=== PATIENT | male | born 1990 | race Caucasian/White ===

== ENCOUNTER 2022-08-07 13:06 | Emergency (ER) | payer OTHER, SELFPAY ==
--- NOTE | ~2022-08-07 | XR_ITS ---
EXAMINATION: XR CHEST CLINICAL INFORMATION: Chest pain. Left shoulder pain COMPARISON: None available. TECHNIQUE: Frontal view of the chest was obtained. FINDINGS: No significant abnormality is noted involving the heart, lungs, mediastinum, bony thorax or soft tissues. Small piece of jewelry present over the left chest. XR/XR chest 1V IMPRESSION: Unremarkable examination.
--- NOTE | 2022-08-07 13:09 | ECG_ITS ---
Test Reason : L SHOULDER PAIN Blood Pressure : / mmHG Vent. Rate : 079 BPM Atrial Rate : 079 BPM P-R Int : 150 ms QRS Dur : 088 ms QT Int : 354 ms P-R-T Axes : 027 011 028 degrees QTc Int : 405 ms Normal sinus rhythm Normal ECG No previous ECGs available Referred By: Kyra Mahoney Electronically Signed By:Casey Davalos
--- NOTE | 2022-08-07 13:13 | ED.GENADULT ---
HPI - General Adult General Chief complaint: Back Pain/Injury <JOSE JUAN Lopez Last Filed: 08/07/22 13:15> Stated complaint: L shoulder pain/L hand numbness <JOSE JUAN Lopez Last Filed: 08/07/22 13:15> Time Seen by Provider: 08/07/22 15:52 <JOSE JUAN Lopez Last Filed: 08/07/22 13:15> Source: patient <JOSE JUAN Mccarthy Last Filed: 08/07/22 17:22> Mode of arrival: ambulatory <JOSE JUAN Mccarthy Last Filed: 08/07/22 17:22> History of Present Illness HPI narrative: 32-year-old male with no significant past medical history presenting to the ED complaining of left upper back /scapular pain waking him up from sleep around 03:00AM. Reports pain radiates down left upper extremity and to left shoulder, worse with movement and palpation. denies known injury, trauma, fall. Reports mild left upper extremity paresthesias. Denies numbness, weakness, headache, lightheadedness, vision changes, CP/SOB <JOSE JUAN Mccarthy Last Filed: 08/07/22 17:22> Onset (ago): hour(s) <JOSE JUAN Mccarthy Last Filed: 08/07/22 17:22> Related Data Home medications: Previous Rx's Medication Instructions Recorded acetaminophen 500 mg tablet 500 mg PO Q6H PRN fever or pain 08/07/22 (Tylenol Extra Strength) #14 tabs cyclobenzaprine 5 mg tablet 5 mg PO Q8H PRN pain (scale score 08/07/22 7-10) 5 days #14 tabs lidocaine 5 % topical patch 1 patch topical DAILY PRN pain #30 08/07/22 (Lidoderm) ea naproxen 500 mg tablet 500 mg PO BID PRN pain 10 days #20 08/07/22 tabs <JOSE JUAN Lopez Last Filed: 08/07/22 13:15> Allergies/adverse reactions: Allergies Allergy/AdvReac Type Severity Reaction Status Date / Time No Known Allergies Allergy Verified 08/07/22 13:14 <JOSE JUAN Lopez Last Filed: 08/07/22 13:15> Review of Systems Review of Systems: Constitutional: No Fever, No Chills ENT/Mouth: No Ear Pain, No Nasal Congestion, No sore throat, No Rhinorrhea, No Swallowing Difficulty Cardiovascular: No Chest Pain, No SOB Respiratory: No Cough, No Sputum, No Wheezing Gastrointestinal: No Nausea, No Vomiting, No Diarrhea, No Constipation, No Abdominal pain Genitourinary: No Dysuria, No Urinary Frequency, No Hematuria, No Urinary Incontinence/retention, No Flank Pain Musculoskeletal: + joint pain, No Myalgias, No Joint Swelling Skin: No Skin Lesions, No rash Neuro: No Weakness, No Numbness, + Paresthesias <JOSE JUAN Mccarthy - Last Filed: 08/07/22 17:22> Yes all other systems are reviewed and are negative <JOSE JUAN Mccarthy - Last Filed: 08/07/22 17:22> Constitutional: Constitutional: Reports as per HPI <JOSE JUAN Mccarthy - Last Filed: 08/07/22 17:22> Neurologic: Denies Sensory deficit (Neuro) <JOSE JUAN Mccarthy - Last Filed: 08/07/22 17:22> [facility] Past Medical History Attestation statement: The following information was validated with the patient. <JOSE JUAN Mccarthy - Last Filed: 08/07/22 17:22> Social History Social History: Social History Advance Directives: No Advance Directives Information Provided: No <JOSE JUAN Lopez - Last Filed: 08/07/22 13:15> Physical Exam ED Vital Signs: Vital Signs - 24 hr 08/07/22 13:15 Temperature 98 F Pulse Rate 87 Respiratory Rate 17 Blood Pressure 150/98 H Pulse Oximetry 99 Oxygen Delivery Method Room Air BMI result Body Mass Index 27.9 <JOSE JUAN Lopez Last Filed: 08/07/22 13:15> Vital Signs - 24 hr 08/07/22 13:15 Temperature 98 F Pulse Rate 87 Respiratory Rate 17 Blood Pressure 150/98 H Pulse Oximetry 99 Oxygen Delivery Method Room Air BMI result Body Mass Index 27.9 <JOSE JUAN Mccarthy - Last Filed: 08/07/22 17:22> Const General: cooperative, healthy appearing, no acute distress, alert and awake <JOSE JUAN Mccarthy - Last Filed: 08/07/22 17:22> Orientation/consciousness: patient oriented x3 <JOSE JUAN Mccarthy - Last Filed: 08/07/22 17:22> Limitations: no limitations <JOSE JUAN Mccarthy - Last Filed: 08/07/22 17:22> HENMT Head: Yes normal to inspection and Yes atraumatic <Maureen Traylor PA - Last Filed: 08/07/22 17:22> Ears: hearing grossly normal bilaterally <JOSE JUAN Mccarthy - Last Filed: 08/07/22 17:22> General nose exam: Normal external nose present <JOSE JUAN Mccarthy - Last Filed: 08/07/22 17:22> Face and sinus: Yes normal facial exam <JOSE JUAN Mccarthy - Last Filed: 08/07/22 17:22> Eyes General: appearance normal, both eyes and all related structures <JOSE JUAN Mccarthy - Last Filed: 08/07/22 17:22> EOM: EOMs intact bilaterally <JOSE JUAN Mccarthy - Last Filed: 08/07/22 17:22> Neck Other: no midline cervical spinous tenderness. <JOSE JUAN Mccarthy - Last Filed: 08/07/22 17:22> Neck: Yes normal visual inspection and Yes no meningeal signs <JOSE JUAN Mccarthy - Last Filed: 08/07/22 17:22> Chest Chest palpation & inspection: normal inspection of the chest <JOSE JUAN Mccarthy - Last Filed: 08/07/22 17:22> Resp Effort & Inspection: normal respiratory effort and no respiratory distress <JOSE JUAN Mccarthy - Last Filed: 08/07/22 17:22> Auscultation: clear to auscultation bilaterally <JOSE JUAN Mccarhty - Last Filed: 08/07/22 17:22> Cardio Rate: regular rate <JOSE JUAN Mccarthy - Last Filed: 08/07/22 17:22> Heart sounds: S1 normal heart sound present and S2 normal heart sound present <JOSE JUAN Mccarthy - Last Filed: 08/07/22 17:22> GI Inspection: Yes normal to inspection <JOSE JUAN Mccarthy - Last Filed: 08/07/22 17:22> Palpation (GI): Soft to palpation, nontender, no guarding and not rigid <Maureen Traylor PA - Last Filed: 08/07/22 17:22> General: Yes no CVA tenderness <Maureen Traylor PA - Last Filed: 08/07/22 17:22> Back/Spine/Pelvis Other: No midline thoracic/lumbar spinous tenderness/step-off or deformity. + Left scapular palpable muscle spasming and tenderness to palpation, reproducing subjective complaint. Pain also elicited with left arm movement. <Maureen Traylor PA - Last Filed: 08/07/22 17:22> Back: no CVA tenderness <Maureen Traylor PA - Last Filed: 08/07/22 17:22> Skin Rashes: no rashes <Maureen Traylor PA - Last Filed: 08/07/22 17:22> Wounds: no wounds <Maureen Traylor PA - Last Filed: 08/07/22 17:22> Neuro General: patient oriented x3, gait normal, tone normal, moves all extremities, no meningeal signs, no focal motor deficits and CN's II-XI intact bilaterally <Maureen Traylor PA - Last Filed: 08/07/22 17:22> Gait exam (Neuro): Normal gait present <JOSE JUAN Mccarthy - Last Filed: 08/07/22 17:22> Sensory Exam: No Sensory deficit (Neuro) <Maureen Traylor PA - Last Filed: 08/07/22 17:22> Extrem General: Yes normal to inspection <JOSE JUAN Mccarthy - Last Filed: 08/07/22 17:22> Course Course Course Narrative: This is an RME: Additional HPI, ROS, PE not included below will be deferred to primary provider. 32-year-old male presents with numbness and tingling to left shoulder/ hand. Patient tells me at 03:00 he awoke with severe left-sided neck pain and then after started experiencing left shoulder pain, numbness, tingling to left hand. This is never happened to him before. No trauma to the area. Reports mild substernal nonradiating chest pain. Denies shortness of breath, fevers, chills, headache, vision changes, dizziness and weakness physical exam discomfort with palpation of left-sided cervical paraspinous muscles. You neurovascular status intact 2+ radial pulses. No wrist drop. NIH stroke scale 0. Plan labs , EKG, troponin. Likely cervical radiculopathy however <JOSE JUAN Lopez - Last Filed: 08/07/22 13:15> This is an RME: Additional HPI, ROS, PE not included below will be deferred to primary provider. 32-year-old male presents with numbness and tingling to left shoulder/ hand. Patient tells me at 03:00 he awoke with severe left-sided neck pain and then after started experiencing left shoulder pain, numbness, tingling to left hand. This is never happened to him before. No trauma to the area. Reports mild substernal nonradiating chest pain. Denies shortness of breath, fevers, chills, headache, vision changes, dizziness and weakness physical exam discomfort with palpation of left-sided cervical paraspinous muscles. You neurovascular status intact 2+ radial pulses. No wrist drop. NIH stroke scale 0. Plan labs , EKG, troponin. Likely cervical radiculopathy however -1621-- mild leukocytosis of 11.6. Troponin negative. Labs otherwise reassuring. XR chest 1V IMPRESSION: Unremarkable examination. Results discussed with patient including worrisome signs and symptoms and strict return precautions, and when to return to the emergency department. They verbalized understanding and feel safe for discharge at this time. <JOSE JUAN Mccarthy - Last Filed: 08/07/22 17:22> Medications Administered Discontinued Medications Generic Name Dose Route Start Last Admin Trade Name Freq PRN Reason Stop Dose Admin Cyclobenzaprine HCl 10 mg 08/07/22 16:40 08/07/22 16:53 Cyclobenzaprine Hcl 10 Mg Tablet PO 08/07/22 16:41 10 mg ONCE ONE Administration Ketorolac Tromethamine 30 mg 08/07/22 16:40 08/07/22 16:53 Ketorolac Tromethamine 30 Mg/Ml Vial IM 08/07/22 16:41 30 mg ONCE ONE Administration Lidocaine 1 patch 08/07/22 16:40 08/07/22 16:53 Lidocaine 4 % Patch Adh..Patch TRANSDERMA 08/07/22 16:41 1 patch ONCE ONE Administration Protocol <JOSE JUAN Lopez - Last Filed: 08/07/22 13:15> Medications Administered Discontinued Medications Generic Name Dose Route Start Last Admin Trade Name Denisse PRN Reason Stop Dose Admin Cyclobenzaprine HCl 10 mg 08/07/22 16:40 08/07/22 16:53 Cyclobenzaprine Hcl 10 Mg Tablet PO 08/07/22 16:41 10 mg ONCE ONE Administration Ketorolac Tromethamine 30 mg 08/07/22 16:40 08/07/22 16:53 Ketorolac Tromethamine 30 Mg/Ml Vial IM 08/07/22 16:41 30 mg ONCE ONE Administration Lidocaine 1 patch 08/07/22 16:40 08/07/22 16:53 Lidocaine 4 % Patch Adh..Patch TRANSDERMA 08/07/22 16:41 1 patch ONCE ONE Administration Protocol <JOSE JUAN Mccarthy - Last Filed: 08/07/22 17:22> Medical Decision Making Medical Decision Making MDM Narrative: 32-year-old male with no significant past medical history presenting to the ED complaining of left upper back /scapular pain waking him up from sleep around 03:00AM. On exam vital signs stable, NAD, nontoxic appearing, left scapular pain reproduced on exam. Lungs CTA. no midline spinous tenderness. No red flag symptoms. Concern for MSK pain/spasming. Rule out potential pneumonia. symptoms atypical for ACS. Low suspicion for cervical dissection, fracture, dislocation plan: EKG, labs, CXR ordered in triage Please refer to course for remaining clinical decision making, interpretation of labs/imaging results, and discussions with consultants and/or family members. <JOSE JUAN Mccarthy Last Filed: 08/07/22 17:22> Differential Diagnosis Differential Diagnoses: The differential diagnosis associated with the presentation includes <JOSE JUAN Mccarthy Last Filed: 08/07/22 17:22> As above <JOSE JUAN Mccarthy Last Filed: 08/07/22 17:22> Admission/Observation Consideration of admission/observation: Escalation of care including admission/observation considered <JOSE JUAN Mccarthy - Last Filed: 08/07/22 17:22> Lab Data MDM Lab Attestation statement: I reviewed the patient's lab results. <JOSE JUAN Mccarthy - Last Filed: 08/07/22 17:22> Result Diagrams: 08/07/22 13:41 08/07/22 13:41 <JOSE JUAN Lopez - Last Filed: 08/07/22 13:15> Labs: Lab Results 08/07/22 08/07/22 08/07/22 Range/Units 13:41 13:41 13:41 WBC 11.6 H (4.8-10.8) X10*3/uL RBC 4.79 (4.60-5.80) X10*6/uL Hgb 15.6 (14.0-18.0) g/dl Hct 42.9 (42.0-52.0) % MCV 89.6 (80.0-98.0) fL MCH 32.6 (27.0-33.0) pg MCHC 36.4 H (31.0-36.0) g/dl RDW 12.0 (11.0-16.0) % Plt Count 269 (160-400) X10*3/uL MPV 10.2 (9.4-12.4) fL Immature Gran % (Auto) 0.7 H (0.0-0.4) % Neut % (Auto) 79.9 H (45-73) % Lymph % (Auto) 13.5 L (20-40) % [place] % (Auto) 5.3 (2-11) % Eos % (Auto) 0.2 (0-4) % Baso % (Auto) 0.4 (0-2) % Lymph # (Auto) 1.6 (1.2-4.9) X10*3/uL [place] # (Auto) 0.6 (0.1-1.2) X10*3/uL Eos # (Auto) 0.0 (0.0-0.4) X10*3/uL Baso # (Auto) 0.1 (0.0-0.2) X10*3/uL Abs Immat Gran (auto) 0.08 H (0.00-0.03) X10*3/uL Absolute Neuts (auto) 9.2 H (2.0-8.3) x10*3/uL Absolute Nucleated RBC 0.000 (0.0-0.012) X10*3/uL Nucleated RBC % (auto) 0.0 (0.0-0.2) /100WBC Sodium 138 (135-145) mmol/L Potassium 4.3 (3.3-5.1) mmol/L Chloride 105 (96-108) mmol/L Carbon Dioxide 20 L (22-29) mmol/L Anion Gap 17 (12-20) BUN 9 (9-16) mg/dL Creatinine 0.84 (0.5-1.4) mg/dL Estim Creat Clear Calc 138.7 Estimated GFR > 60 Random Glucose 95 (60-115) mg/dL Calcium 9.6 (8.4-10.2) mg/dL Magnesium 2.2 (1.6-2.6) mg/dL Total Bilirubin 0.6 (0.0-1.0) mg/dL AST 30 (5-37) U/L ALT 41 H (0-40) U/L Alkaline Phosphatase 74 (39-117) U/L Troponin I High Sens (<3.5-35.0) ng/L B-Natriuretic Peptide 50 (<100) pg/mL Total Protein 7.1 (6.5-8.0) g/dL Albumin 4.5 (3.5-5.0) g/dL Urine Color Urine Appearance Urine pH (5.0-9.0) Ur Specific [place] (1.005-1.025) Urine Protein (Neg-Trace) mg/dL Urine Glucose (UA) (Negative) mg/dL Urine Ketones (Negative) mg/dL Urine Blood (Negative) Urine Nitrite (Negative) Ur Leukocyte Esterase (Negative) COVID-19 (SERGIO) (Negative) COVID-19 Clin Com 08/07/22 08/07/22 08/07/22 Range/Units 13:41 13:41 13:41 WBC (4.8-10.8) X10*3/uL RBC (4.60-5.80) X10*6/uL Hgb (14.0-18.0) g/dl Hct (42.0-52.0) % MCV (80.0-98.0) fL MCH (27.0-33.0) pg MCHC (31.0-36.0) g/dl RDW (11.0-16.0) % Plt Count (160-400) X10*3/uL MPV (9.4-12.4) fL Immature Gran % (Auto) (0.0-0.4) % Neut % (Auto) (45-73) % Lymph % (Auto) (20-40) % [place] % (Auto) (2-11) % Eos % (Auto) (0-4) % Baso % (Auto) (0-2) % Lymph # (Auto) (1.2-4.9) X10*3/uL [place] # (Auto) (0.1-1.2) X10*3/uL Eos # (Auto) (0.0-0.4) X10*3/uL Baso # (Auto) (0.0-0.2) X10*3/uL Abs Immat Gran (auto) (0.00-0.03) X10*3/uL Absolute Neuts (auto) (2.0-8.3) x10*3/uL Absolute Nucleated RBC (0.0-0.012) X10*3/uL Nucleated RBC % (auto) (0.0-0.2) /100WBC Sodium (135-145) mmol/L Potassium (3.3-5.1) mmol/L Chloride (96-108) mmol/L Carbon Dioxide (22-29) mmol/L Anion Gap (12-20) BUN (9-16) mg/dL Creatinine (0.5-1.4) mg/dL Estim Creat Clear Calc Estimated GFR Random Glucose (60-115) mg/dL Calcium (8.4-10.2) mg/dL Magnesium (1.6-2.6) mg/dL Total Bilirubin (0.0-1.0) mg/dL AST (5-37) U/L ALT (0-40) U/L Alkaline Phosphatase (39-117) U/L Troponin I High Sens < 2.7 (<3.5-35.0) ng/L B-Natriuretic Peptide (<100) pg/mL Total Protein (6.5-8.0) g/dL Albumin (3.5-5.0) g/dL Urine Color Yellow Urine Appearance Clear Urine pH 7.0 (5.0-9.0) Ur Specific [place] 1.010 (1.005-1.025) Urine Protein Negative (Neg-Trace) mg/dL Urine Glucose (UA) Negative (Negative) mg/dL Urine Ketones Negative (Negative) mg/dL Urine Blood Negative (Negative) Urine Nitrite Negative (Negative) Ur Leukocyte Esterase Negative (Negative) COVID-19 (SERGIO) Negative (Negative) COVID-19 Clin Com See Note <JOSE JUAN Lopez - Last Filed: 08/07/22 13:15> Lab Results 08/07/22 08/07/22 08/07/22 Range/Units 13:41 13:41 13:41 WBC 11.6 H (4.8-10.8) X10*3/uL RBC 4.79 (4.60-5.80) X10*6/uL Hgb 15.6 (14.0-18.0) g/dl Hct 42.9 (42.0-52.0) % MCV 89.6 (80.0-98.0) fL MCH 32.6 (27.0-33.0) pg MCHC 36.4 H (31.0-36.0) g/dl RDW 12.0 (11.0-16.0) % Plt Count 269 (160-400) X10*3/uL MPV 10.2 (9.4-12.4) fL Immature Gran % (Auto) 0.7 H (0.0-0.4) % Neut % (Auto) 79.9 H (45-73) % Lymph % (Auto) 13.5 L (20-40) % [place] % (Auto) 5.3 (2-11) % Eos % (Auto) 0.2 (0-4) % Baso % (Auto) 0.4 (0-2) % Lymph # (Auto) 1.6 (1.2-4.9) X10*3/uL [place] # (Auto) 0.6 (0.1-1.2) X10*3/uL Eos # (Auto) 0.0 (0.0-0.4) X10*3/uL Baso # (Auto) 0.1 (0.0-0.2) X10*3/uL Abs Immat Gran (auto) 0.08 H (0.00-0.03) X10*3/uL Absolute Neuts (auto) 9.2 H (2.0-8.3) x10*3/uL Absolute Nucleated RBC 0.000 (0.0-0.012) X10*3/uL Nucleated RBC % (auto) 0.0 (0.0-0.2) /100WBC Sodium 138 (135-145) mmol/L Potassium 4.3 (3.3-5.1) mmol/L Chloride 105 (96-108) mmol/L Carbon Dioxide 20 L (22-29) mmol/L Anion Gap 17 (12-20) BUN 9 (9-16) mg/dL Creatinine 0.84 (0.5-1.4) mg/dL Estim Creat Clear Calc 138.7 Estimated GFR > 60 Random Glucose 95 (60-115) mg/dL Calcium 9.6 (8.4-10.2) mg/dL Magnesium 2.2 (1.6-2.6) mg/dL Total Bilirubin 0.6 (0.0-1.0) mg/dL AST 30 (5-37) U/L ALT 41 H (0-40) U/L Alkaline Phosphatase 74 (39-117) U/L Troponin I High Sens (<3.5-35.0) ng/L B-Natriuretic Peptide 50 (<100) pg/mL Total Protein 7.1 (6.5-8.0) g/dL Albumin 4.5 (3.5-5.0) g/dL Urine Color Urine Appearance Urine pH (5.0-9.0) Ur Specific [place] (1.005-1.025) Urine Protein (Neg-Trace) mg/dL Urine Glucose (UA) (Negative) mg/dL Urine Ketones (Negative) mg/dL Urine Blood (Negative) Urine Nitrite (Negative) Ur Leukocyte Esterase (Negative) COVID-19 (SERGIO) (Negative) COVID-19 Clin Com 08/07/22 08/07/22 08/07/22 Range/Units 13:41 13:41 13:41 WBC (4.8-10.8) X10*3/uL RBC (4.60-5.80) X10*6/uL Hgb (14.0-18.0) g/dl Hct (42.0-52.0) % MCV (80.0-98.0) fL MCH (27.0-33.0) pg MCHC (31.0-36.0) g/dl RDW (11.0-16.0) % Plt Count (160-400) X10*3/uL MPV (9.4-12.4) fL Immature Gran % (Auto) (0.0-0.4) % Neut % (Auto) (45-73) % Lymph % (Auto) (20-40) % [place] % (Auto) (2-11) % Eos % (Auto) (0-4) % Baso % (Auto) (0-2) % Lymph # (Auto) (1.2-4.9) X10*3/uL [place] # (Auto) (0.1-1.2) X10*3/uL Eos # (Auto) (0.0-0.4) X10*3/uL Baso # (Auto) (0.0-0.2) X10*3/uL Abs Immat Gran (auto) (0.00-0.03) X10*3/uL Absolute Neuts (auto) (2.0-8.3) x10*3/uL Absolute Nucleated RBC (0.0-0.012) X10*3/uL Nucleated RBC % (auto) (0.0-0.2) /100WBC Sodium (135-145) mmol/L Potassium (3.3-5.1) mmol/L Chloride (96-108) mmol/L Carbon Dioxide (22-29) mmol/L Anion Gap (12-20) BUN (9-16) mg/dL Creatinine (0.5-1.4) mg/dL Estim Creat Clear Calc Estimated GFR Random Glucose (60-115) mg/dL Calcium (8.4-10.2) mg/dL Magnesium (1.6-2.6) mg/dL Total Bilirubin (0.0-1.0) mg/dL AST (5-37) U/L ALT (0-40) U/L Alkaline Phosphatase (39-117) U/L Troponin I High Sens < 2.7 (<3.5-35.0) ng/L B-Natriuretic Peptide (<100) pg/mL Total Protein (6.5-8.0) g/dL Albumin (3.5-5.0) g/dL Urine Color Yellow Urine Appearance Clear Urine pH 7.0 (5.0-9.0) Ur Specific [place] 1.010 (1.005-1.025) Urine Protein Negative (Neg-Trace) mg/dL Urine Glucose (UA) Negative (Negative) mg/dL Urine Ketones Negative (Negative) mg/dL Urine Blood Negative (Negative) Urine Nitrite Negative (Negative) Ur Leukocyte Esterase Negative (Negative) COVID-19 (SERGIO) Negative (Negative) COVID-19 Clin Com See Note <JOSE JUAN Mccarthy - Last Filed: 08/07/22 17:22> Independent Interpretation I performed an independent interpretation of an: EKG ( My interpretation normal sinus rhythm at a rate of 79. QRS 88. QTC 405. No STEMI.) <JOSE JUAN Mccarthy - Last Filed: 08/07/22 17:22> Radiology Impression Discussion of test interpretation with radiology: I have reviewed the radiologist's reading. <JOSE JUAN Mccarthy - Last Filed: 08/07/22 17:22> External Record Review External record reviewed: Inpatient record, Office record, Outpatient record, Prior outpatient labs, Prior outpatient radiology, Primary care record and Outside ED record <JOSE JUAN Mccarthy - Last Filed: 08/07/22 17:22> Discharge Plan Discharge Clinical Impression: Pain of left scapula <JOSE JUAN Lopez - Last Filed: 08/07/22 13:15> Patient Disposition: Home, Self-Care <JOSE JUAN Lopez - Last Filed: 08/07/22 13:15> Instructions: Arthralgia (ED) <JOSE JUAN Lopez - Last Filed: 08/07/22 13:15> Additional Instructions: your blood work and imaging studies were reassuring. Your pain is likely musculoskeletal Flexeril is a muscle relaxer, take at night as it makes you drowsy, do not drive, drink alcohol, or operate machinery while taking it Naproxen as an anti-inflammatory / pain medication, take with food Lidoderm patches are numbing patches, apply to painful area In addition take Tylenol at home If symptoms persist or worsen, pain becomes unbearable, you developed urinary retention or incontinence, or weakness return to the ED <JOSE JUAN Lopez - Last Filed: 08/07/22 13:15> Prescriptions: New acetaminophen [Tylenol Extra Strength] 500 mg tablet 500 mg PO Q6H PRN (Reason: fever or pain) Qty: 14 0RF lidocaine [Lidoderm] 5 % adhesive patch,medicated 1 patch topical DAILY MDD remove after 12 hours PRN (Reason: pain) Qty: 30 0RF Rx Instructions: leave on most painful area for up to 12 hrs naproxen 500 mg tablet 500 mg PO BID PRN (Reason: pain) 10 Days Qty: 20 0RF cyclobenzaprine 5 mg tablet 5 mg PO Q8H PRN (Reason: pain (scale score 7-10)) 5 Days Qty: 14 0RF <JOSE JUAN Lopez - Last Filed: 08/07/22 13:15> Referrals: Physician,None [Primary Care Provider] - <JOSE JUAN Lopez - Last Filed: 08/07/22 13:15> Stand Alone Forms: Work/School Release <JOSE JUAN Lopez - Last Filed: 08/07/22 13:15>
[2022-08-07 13:15] VITALS: BP 150/98; PULSE 87; RESP 17; TEMP 36.6; O2SAT 99; BMI 27.9
[2022-08-07 13:46] LABS: MANUAL DIFF FLAG NO
[2022-08-07 13:51] LABS: Basophils Absolute Auto 0.1 X10*3/uL (0.0-0.2); Basophils Percent Auto 0.4 % (0-2); Eosinophils Percent Auto 0.2 % (0-4); Hematocrit 42.9 % (42.0-52.0); Hemoglobin 15.6 g/dl (14.0-18.0); Imm Gran Abs Auto 0.08 X10*3/uL (0.00-0.03); Imm Gran Pct Auto 0.7 % (0.0-0.4); Lymphocytes Absolute Auto 1.6 X10*3/uL (1.2-4.9); Lymphocytes Percent Auto 13.5 % (20-40); Mean Corpuscular HGB Conc 36.4 g/dl (31.0-36.0); Mean Corpuscular Hemoglobin 32.6 pg (27.0-33.0); Mean Corpuscular Volume 89.6 fL (80.0-98.0); Mean Platelet Volume 10.2 fL (9.4-12.4); Monocytes Absolute Auto 0.6 X10*3/uL (0.1-1.2); Monocytes Percent Auto 5.3 % (2-11); Neutrophils Absolute Auto 9.2 x10*3/uL (2.0-8.3); Neutrophils Percent Auto 79.9 % (45-73); Platelet Count 269 X10*3/uL (160-400); Red Blood Count 4.79 X10*6/uL (4.60-5.80); White Blood Count 11.6 X10*3/uL (4.8-10.8)
[2022-08-07 13:59] LABS: Appearance Urine Clear; Color Urine Yellow; Glucose Urine UA Negative (Negative); Leukocyte Esterase Urine Negative (Negative); Nitrite Urine Negative (Negative); Urine Blood Negative (Negative); Urine Ketones Negative (Negative); Urine Protein Negative (Neg-Trace)
[2022-08-07 14:09] LABS: COVID-19 Test Negative (Negative); IDNOW Serial# 55D5AD1C
[2022-08-07 14:10] LABS: Alanine Aminotransferase 41 U/L (0-40); Albumin Level 4.5 g/dL (3.5-5.0); Alkaline Phosphatase 74 U/L (39-117); Anion Gap 17 (12-20); Aspartate Amino Transferase 30 U/L (5-37); Bilirubin Total 0.6 mg/dL (0.0-1.0); Blood Urea Nitrogen 9 mg/dL (9-16); Calcium 9.6 mg/dL (8.4-10.2); Carbon Dioxide 20 mmol/L (22-29); Chloride 105 mmol/L (96-108); Creatinine Clr Calc Pharmacy 138.7; Estimated Glomerular Filt Rate > 60; Glucose Random 95 mg/dL (60-115); Magnesium 2.2 mg/dL (1.6-2.6); Potassium 4.3 mmol/L (3.3-5.1); Sodium 138 mmol/L (135-145); Total Protein 7.1 g/dL (6.5-8.0)
[2022-08-07 14:16] LABS: B Type Natriuretic Peptide 50 pg/mL (<100)
[2022-08-07 14:19] LABS: Troponin-I High Sensitivity < 2.7 ng/L (<3.5-35.0)
[2022-08-07] MEDS: Ketorolac Tromethamine 30 MG/ML VIAL IM (16:53)
[2022-08-07] MEDS: Cyclobenzaprine HCl 10 MG TABLET PO (16:53)
[2022-08-07] MEDS: Lidocaine 4 % Patch ADH..PATCH 1 PATCH TRANSDERMA (16:53)
== END 2022-08-07 17:54 | disposition home or self-care (01) ==
PROVIDERS: Physician Assistant; Emergency Provider Emergency Medicine
DX: M25.512 Pain in left shoulder (principal); Z20.822 Contact with and (suspected) exposure to COVID-19; R20.2 Paresthesia of skin
CPT/HCPCS: 36415; 71045; 80053; 81003; 83735; 83880; 84484; 85025; 87635; 93005; 96372; 99284; J1885

== ENCOUNTER 2022-08-20 10:29 | Emergency (ER) | payer OTHER, SELFPAY ==
--- NOTE | ~2022-08-20 | XR_ITS ---
EXAMINATION: XR SHOULDER, LEFT CLINICAL INFORMATION: Pain COMPARISON: None available. TECHNIQUE: 3 views of the left shoulder. FINDINGS: The bones and soft tissues are normal. No fracture. Glenohumeral and acromioclavicular alignment is anatomic with normal joint space. No abnormal soft tissue calcifications. XR/XR shoulder LT min 2V IMPRESSION: Normal left shoulder.
[2022-08-20 10:55] VITALS: BP 148/91; PULSE 110; RESP 18; O2SAT 99; BMI 28.7
--- NOTE | 2022-08-20 13:08 | ECG_ITS ---
Test Reason : l arm pain Blood Pressure : / mmHG Vent. Rate : 076 BPM Atrial Rate : 076 BPM P-R Int : 148 ms QRS Dur : 092 ms QT Int : 376 ms P-R-T Axes : 028 011 029 degrees QTc Int : 423 ms Normal sinus rhythm Normal ECG When compared with ECG of 07-AUG-2022 13:35, No significant change was found Referred By: Maxime Salas Electronically Signed By:JOSE LENZ
--- NOTE | 2022-08-20 13:25 | ED_ITS ---
HPI - General Adult General Chief complaint: Extremity Problem Stated complaint: Pinched nerve/L shoulder pain/L arm pain Time Seen by Provider: 08/20/22 12:15 Source: patient Mode of arrival: ambulatory Limitations: no limitations History of Present Illness HPI narrative: 32-year-old male healthy presents ED for left shoulder pain/left arm numbness for 14 days that is worse on movement. Patient denies any trauma to left upper extremity/neck pain/ left upper extremity swelling, or paralysis. Patient denies chest pain today but had slight chest pain 14 days ago that resolved. Patient had normal cardiac workup and chest xray in prior ED visit. Patient states he has no primary care provider. Patient states no shoulder pain relief with naproxen and mulsce relaxers Related Data Previous Rx's Medication Instructions Recorded acetaminophen 500 mg tablet 500 mg PO Q6H PRN fever or pain 08/07/22 (Tylenol Extra Strength) #14 tabs cyclobenzaprine 5 mg tablet 5 mg PO Q8H PRN pain (scale score 08/07/22 7-10) 5 days #14 tabs lidocaine 5 % topical patch 1 patch topical DAILY PRN pain #30 08/07/22 (Lidoderm) ea naproxen 500 mg tablet 500 mg PO BID PRN pain 10 days #20 08/07/22 tabs ketorolac 10 mg tablet 10 mg PO QID PRN pain 5 days #20 08/20/22 tabs prednisone 20 mg tablet 60 mg PO DAILY 5 days #15 tabs 08/20/22 Allergies Allergy/AdvReac Type Severity Reaction Status Date / Time No Known Allergies Allergy Verified 08/07/22 13:14 Review of Systems Review of Systems: LEft shoulder/left arm pain. No chest pain today Yes all other systems are reviewed and are negative [facility] Social History Social History Advance Directives: No Advance Directives Information Provided: Yes Physical Exam ED Vital Signs: Vital Signs - 24 hr 08/20/22 10:55 08/20/22 15:13 Pulse Rate 110 H 80 Respiratory Rate 18 16 Blood Pressure 148/91 H 144/86 H Pulse Oximetry 99 98 Oxygen Delivery Method Room Air Room Air BMI result Body Mass Index 28.7 Const General: cooperative, healthy appearing, comfortable, no acute distress, well developed, alert, awake and Physically active Orientation/consciousness: oriented to person, oriented to place, oriented to time and patient oriented x3 [facility] Head: Yes normal to inspection, Yes No palpable skull fracture present, Yes normocephalic, Yes atraumatic and No abrasion Eyes General: appearance normal, both eyes and all related structures Neck Neck: Yes normal visual inspection, Yes full ROM, Yes no lymphadenopathy, Yes no meningeal signs, Yes trachea midline, Yes supple, No anterior neck swelling and No tender Chest Chest palpation & inspection: normal inspection of the chest and normal palpation of entire chest wall Resp Effort & Inspection: normal respiratory effort and able to speak in complete sentences Cardio Jugular venous distension: no JVD Heart sounds: S1 normal heart sound present and S2 normal heart sound present GI Inspection: Yes normal to inspection and No abdominal wall ecchymosis Palpation (GI): Soft to palpation, not firm, nontender, no guarding, not rigid and hepatosplenomegaly present General: No CVA tenderness and Yes no CVA tenderness Back/Spine/Pelvis Back: no CVA tenderness, No CVA tenderness and No back tenderness Skin General skin exam: no rashes or lesions noted and elasticity normal Neuro General: oriented to person, oriented to place, oriented to time, patient or iented x3, gait normal, tone normal, moves all extremities, Normal light touch and pain sensation, no meningeal signs, no focal motor deficits and CN's II-XI intact bilaterally Extrem Other: Left upper extremity: Negative for any swelling, tenderness, ecchymosis, or deformity. Motor/nose/vascular exam intact. Positive for shoulder pain on range of motion of left upper extremity. General: Yes normal to inspection and Yes full ROM Psych Appearance: grossly normal, well kempt and not disheveled Course Course Course Narrative: Unlikely cardiac event but due to patient stating left shoulder arm pain with numbness/tingling will do EKG and 1 troponin. Shoulder x-ray will be ordered. Last ED visit patient had normal chest x-ray and denies chest pain today. Reevaluation(s) Reevaluation #1: Shoulder x-ray came back negative for any fracture or dislocations. EKG negative STEMI. Troponin negative. Patient informed necessity for follow-up with primary care provider for physical therapy and MRI to check for shoulder muscle tear or nerve impingement. Patient does not have primary care given information to call your primary care office and also orthopedic. Patient will be discharged with Toradol and prednisone. Time: 15:08 Medications Administered Discontinued Medications Generic Name Dose Route Start Last Admin Trade Name Denisse PRN Reason Stop Dose Admin Ketorolac Tromethamine 30 mg 08/20/22 13:29 08/20/22 13:39 Ketorolac Tromethamine 30 Mg/Ml Vial IM 08/20/22 13:30 30 mg ONCE ONE Administration Prednisone 60 mg 08/20/22 13:25 08/20/22 13:40 Prednisone 20 Mg Tablet PO 08/20/22 13:26 60 mg ONCE ONE Administration Medical Decision Making Medical Decision Making [facility] Narrative: 32 yold male presents to the ED for left shoulder pain described as pinched nerve for 14 ydas. Shoulder x-ray normal cardiac workup negative. Patient informed follow-up with primary care or Orthopedics for MRI physical therapy. Patient will be discharged with Toradol and prednisone. Differential Diagnosis Differential Diagnoses: The differential diagnosis associated with the presentation includes (Shoulder dislocation, shoulder fracture, MO, frozen shoulder) Admission/Observation Consideration of admission/observation: Escalation of care including adm ission/observation considered Lab Data [facility] Lab Attestation statement: I reviewed the patient's lab results. 08/20/22 14:23 08/20/22 14:23 Labs: Lab Results 08/20/22 08/20/22 08/20/22 Range/Units 14:23 14:23 14:23 WBC 9.0 (4.8-10.8) X10*3/uL RBC 4.79 (4.60-5.80) X10*6/uL Hgb 15.6 (14.0-18.0) g/dl Hct 44.0 (42.0-52.0) % MCV 91.9 (80.0-98.0) fL MCH 32.6 (27.0-33.0) pg MCHC 35.5 (31.0-36.0) g/dl RDW 12.2 (11.0-16.0) % Plt Count 266 (160-400) X10*3/uL MPV 10.3 (9.4-12.4) fL Immature Gran % (Auto) 0.7 H (0.0-0.4) % Neut % (Auto) 65.5 (45-73) % Lymph % (Auto) 22.8 (20-40) % [place] % (Auto) 6.9 (2-11) % Eos % (Auto) 3.4 (0-4) % Baso % (Auto) 0.7 (0-2) % Lymph # (Auto) 2.1 (1.2-4.9) X10*3/uL [place] # (Auto) 0.6 (0.1-1.2) X10*3/uL Eos # (Auto) 0.3 (0.0-0.4) X10*3/uL Baso # (Auto) 0.1 (0.0-0.2) X10*3/uL Abs Immat Gran (auto) 0.06 H (0.00-0.03) X10*3/uL Absolute Neuts (auto) 5.9 (2.0-8.3) x10*3/uL Absolute Nucleated RBC 0.000 (0.0-0.012) X10*3/uL Nucleated RBC % (auto) 0.0 (0.0-0.2) /100WBC PT 11.1 (10.0-13.1) SEC INR 1.0 (0.9-1.1) APTT 29.7 (26.0-36.4) SEC Sodium 137 (135-145) mmol/L Potassium 4.9 (3.3-5.1) mmol/L Chloride 105 (96-108) mmol/L Carbon Dioxide 23 (22-29) mmol/L Anion Gap 14 (12-20) BUN 13 (9-16) mg/dL Creatinine 0.91 (0.5-1.4) mg/dL Estim Creat Clear Calc 129.5 Estimated GFR > 60 Random Glucose 95 (60-115) mg/dL Calcium 9.3 (8.4-10.2) mg/dL Total Bilirubin 0.9 (0.0-1.0) mg/dL AST 35 (5-37) U/L ALT 32 (0-40) U/L Alkaline Phosphatase 72 (39-117) U/L Troponin I High Sens (<3.5-35.0) ng/L Total Protein 7.1 (6.5-8.0) g/dL Albumin 4.5 (3.5-5.0) g/dL 08/20/22 Range/Units 14:23 WBC (4.8-10.8) X10*3/uL RBC (4.60-5.80) X10*6/uL Hgb (14.0-18.0) g/dl Hct (42.0-52.0) % MCV (80.0-98.0) fL MCH (27.0-33.0) pg MCHC (31.0-36.0) g/dl RDW (11.0-16.0) % Plt Count (160-400) X10*3/uL MPV (9.4-12.4) fL Immature Gran % (Auto) (0.0-0.4) % Neut % (Auto) (45-73) % Lymph % (Auto) (20-40) % [place] % (Auto) (2-11) % Eos % (Auto) (0-4) % Baso % (Auto) (0-2) % Lymph # (Auto) (1.2-4.9) X10*3/uL [place] # (Auto) (0.1-1.2) X10*3/uL Eos # (Auto) (0.0-0.4) X10*3/uL Baso # (Auto) (0.0-0.2) X10*3/uL Abs Immat Gran (auto) (0.00-0.03) X10*3/uL Absolute Neuts (auto) (2.0-8.3) x10*3/uL Absolute Nucleated RBC (0.0-0.012) X10*3/uL Nucleated RBC % (auto) (0.0-0.2) /100WBC PT (10.0-13.1) SEC INR (0.9-1.1) APTT (26.0-36.4) SEC Sodium (135-145) mmol/L Potassium (3.3-5.1) mmol/L Chloride (96-108) mmol/L Carbon Dioxide (22-29) mmol/L Anion Gap (12-20) BUN (9-16) mg/dL Creatinine (0.5-1.4) mg/dL Estim Creat Clear Calc Estimated GFR Random Glucose (60-115) mg/dL Calcium (8.4-10.2) mg/dL Total Bilirubin (0.0-1.0) mg/dL AST (5-37) U/L ALT (0-40) U/L Alkaline Phosphatase (39-117) U/L Troponin I High Sens < 2.7 (<3.5-35.0) ng/L Total Protein (6.5-8.0) g/dL Albumin (3.5-5.0) g/dL Independent Interpretation I performed an independent interpretation of an: EKG (Normal sinus rhythm. Ventricular rate 76. Pr interval 148. QRS 92. QTC 423. Negative STEMI) Radiology Impression Discussion of test interpretation with radiology: I have reviewed the radiologist's reading. Prescription Management I considered prescription management with: Pain Medication Discharge Plan Discharge Clinical Impression: Left shoulder pain Patient Disposition: Home, Self-Care Instructions: Shoulder Pain (ED) Additional Instructions: Please follow-up with primary care provider and orthopedic for physical therapy and MRI for re-evaluation of possible shoulder muscle tear versus nerve impingement. Return to the ED immediately for swelling of left upper extremity, chest pain, shortness of breath, redness, blue/discoloration, fever, chills, or any other concerning symptoms. Do not take any other NSaIDS ( naproxen, motrin, alleve, ibuprofen, baclofen), while taking toradol. Prescriptions: New prednisone 20 mg tablet 60 mg PO DAILY 5 Days Qty: 15 0RF ketorolac 10 mg tablet 10 mg PO QID PRN (Reason: pain) 5 Days Qty: 20 0RF Rx Instructions: Do not take with other NSAIDS. REcieved toradol 30mg in the ED No Action acetaminophen [Tylenol Extra Strength] 500 mg tablet 500 mg PO Q6H PRN (Reason: fever or pain) Qty: 14 0RF lidocaine [Lidoderm] 5 % adhesive patch,medicated 1 patch topical DAILY MDD remove after 12 hours PRN (Reason: pain) Qty: 30 0RF Rx Instructions: leave on most painful area for up to 12 hrs naproxen 500 mg tablet 500 mg PO BID PRN (Reason: pain) 10 Days Qty: 20 0RF cyclobenzaprine 5 mg tablet 5 mg PO Q8H PRN (Reason: pain (scale score 7-10)) 5 Days Qty: 14 0RF Referrals: [facility] [place] [facility] [Provider Group] (LEft shoulder pain. muscle tear vs nerve impingment.) [facility] [place] [facility] [Provider Group] (LEft shoulder pain. muscle tear vs nerve impingement) Stand Alone Forms: Work/School Release Interventions: ED Discharge Assessment Last Done: 08/20/22 15:27 Discharge Date/Time: 08/20/22 15:29 Print Language: Chilean
[2022-08-20] MEDS: Ketorolac Tromethamine 30 MG/ML VIAL IM (13:39)
[2022-08-20] MEDS: predniSONE 20 MG TABLET 60 MG PO (13:40)
[2022-08-20 14:29] LABS: MANUAL DIFF FLAG NO
[2022-08-20 14:31] LABS: Basophils Absolute Auto 0.1 X10*3/uL (0.0-0.2); Basophils Percent Auto 0.7 % (0-2); Eosinophils Absolute Auto 0.3 X10*3/uL (0.0-0.4); Eosinophils Percent Auto 3.4 % (0-4); Hemoglobin 15.6 g/dl (14.0-18.0); Imm Gran Abs Auto 0.06 X10*3/uL (0.00-0.03); Imm Gran Pct Auto 0.7 % (0.0-0.4); Lymphocytes Absolute Auto 2.1 X10*3/uL (1.2-4.9); Lymphocytes Percent Auto 22.8 % (20-40); Mean Corpuscular HGB Conc 35.5 g/dl (31.0-36.0); Mean Corpuscular Hemoglobin 32.6 pg (27.0-33.0); Mean Corpuscular Volume 91.9 fL (80.0-98.0); Mean Platelet Volume 10.3 fL (9.4-12.4); Monocytes Absolute Auto 0.6 X10*3/uL (0.1-1.2); Monocytes Percent Auto 6.9 % (2-11); Neutrophils Absolute Auto 5.9 x10*3/uL (2.0-8.3); Neutrophils Percent Auto 65.5 % (45-73); Platelet Count 266 X10*3/uL (160-400); Red Blood Count 4.79 X10*6/uL (4.60-5.80); Red Cell Distribution Width 12.2 % (11.0-16.0)
[2022-08-20 14:38] LABS: Prothrombin Time 11.1 SEC (10.0-13.1)
[2022-08-20 14:41] LABS: Partial Thromboplastin Time 29.7 SEC (26.0-36.4)
[2022-08-20 14:46] LABS: Alanine Aminotransferase 32 U/L (0-40); Albumin Level 4.5 g/dL (3.5-5.0); Alkaline Phosphatase 72 U/L (39-117); Anion Gap 14 (12-20); Aspartate Amino Transferase 35 U/L (5-37); Bilirubin Total 0.9 mg/dL (0.0-1.0); Blood Urea Nitrogen 13 mg/dL (9-16); Calcium 9.3 mg/dL (8.4-10.2); Carbon Dioxide 23 mmol/L (22-29); Chloride 105 mmol/L (96-108); Creatinine Clr Calc Pharmacy 129.5; Estimated Glomerular Filt Rate > 60; Glucose Random 95 mg/dL (60-115); Potassium 4.9 mmol/L (3.3-5.1); Sodium 137 mmol/L (135-145); Total Protein 7.1 g/dL (6.5-8.0)
[2022-08-20 14:54] LABS: Troponin-I High Sensitivity < 2.7 ng/L (<3.5-35.0)
[2022-08-20 15:13] VITALS: BP 144/86; PULSE 80; RESP 16; O2SAT 98
== END 2022-08-20 15:29 | disposition home or self-care (01) ==
PROVIDERS: Physician Assistant; Emergency Provider Emergency Medicine
DX: M25.512 Pain in left shoulder (principal); M79.602 Pain in left arm; R20.2 Paresthesia of skin; Z79.899 Other long term (current) drug therapy
CPT/HCPCS: 36415; 73030; 80053; 84484; 85025; 85610; 85730; 93005; 96372; 99284; J1885

== ENCOUNTER 2023-07-05 09:46 | Outpatient (AMB) | payer OTHER, SELFPAY ==
[2023-07-05 09:55] VITALS: BP 126/86; PULSE 98; O2SAT 96; BMI 30.4
--- NOTE | 2023-07-05 09:55 | A.OFFPC_ITS ---
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 Pt states that he has been having neck pain for a while now and now he started having tingling in his L leg and foot. Allergies melani Allergy (Verified 07/05/23 10:07) irritaes throat nickel Allergy (Verified 07/05/23 10:07) Unknown Medication List - Last Reconciled 07/05/23 by DARRIUS Lynn acetaminophen (Tylenol Extra Strength) 500 mg PO Q6H PRN Tobacco use date assessed: 07/05/23 Dental Screening Dental Screen Date: 07/05/23 Did you have a dental visit in the last 12 months?: Yes Did you have a dental problem in the last 6 months where you did not have access to dental care?: No Was dental information given to patient?: [facility] Family History Father Melanoma Mother ADHD Social History Housing: Apartment Patient Tobacco Use Status: Never used Tobacco Current occupational status: employed Cognitive needs: No Hearing needs: No Vision needs: Yes Questionnaire PHQ-9 Over the last 2 weeks, how often have you been bothered by any of the following problems? 1. Little interest or pleasure in doing things: several days 2. Feeling down, depressed, or hopeless: more than half the days 3. Trouble falling or staying asleep, or sleeping too much: more than half the days 4. Feeling tired or having little energy: several days 5. Poor appetite or overeating: several days 6. Feeling bad about yourself - or that you are a failure or have let yourself or your family down: several days 7. Trouble concentrating on things, such as reading the newspaper or watching television: several days 8. Moving or speaking so slowly that other people could have noticed. Or the opposite - being so fidgety or restless that you have been moving around a lot more than usual: several days 9. Thoughts that you would be better off or of hurting yourself in some way: several days Total score: 11 Depression Screening Interpretation: Negative Depression Screening Done: Yes 06678 - PHQ-9 Billing: Yes Source: Developed by Drs. Wayne Melissa, Edna Israel, Mt Flores and colleagues, with an educational barron from [employer]. AUDIT C Alcohol Use Questionnaire (AUDIT-C) 1. How often do you have a drink containing alcohol?: 4 or more times a week 2. How many drinks containing alcohol do you have on a typical day when you are drinking?: 1 or 2 3. How often do you have six or more drinks on one occasion?: Never Total Score: 4 YONNY-7 AMB Questionnaire YONNY-7 Feeling nervous, anxious, or on edge: 2 = More than half the days Not being able to stop or control worryin = More than half the days Worrying too much about different things: 2 = More than half the days Trouble relaxin = Several days Being so restless that it is hard to sit still: 2 = More than half the days Becoming easily annoyed or irritable: 2 = More than half the days Feeling afraid as if something awful might happen: 2 = More than half the days Total YONNY-7 score (0-4 normal; 5-9 mild; 10-14 moderate; 15-21 severe): 13 Source: Developed by Drs. Wayne Melissa, Edna Israel, Mt Flores and colleagues, with an educational barron from [employer]. YONNY-7 Assessment Billing YONNY-7 Assessment Tool: YONNY-7 Assessment 32873 Review of Systems Const Details: Constitutional : No Weight loss, No Fever, No Chills, No Fatigue, No Malaise ENT/Mouth : No sore throat, No Rhinorrhea Eyes: No Eye Pain, No Swelling, No Redness Cardiovascular : No Chest Pain, No SOB, No Dyspnea on Exertion, No Orthopnea, No Edema, No Palpitations Respiratory : No Cough, No Sputum, No Wheezing Gastrointestinal : No Nausea, No Vomiting, No Diarrhea, No Constipation, No abdominal Pain, No Hematochezia, No Melena, Admits GERD. Genitourinary : No Dysuria, No Urinary Frequency, No Hematuria, Musculoskeletal : Admits upper back, cervical pain. Admits intermittent muscle cramps of left hand and leg. Skin : No Skin Lesions, No rash Neuro : No Weakness, No Numbness, No Dizziness, No Headache. Admits tingling of left hand, thumb and first two fingers, and tingling down left foot. Psych : Admits some Anxiety/Panic, No Depression. Dnies SI/HI. Heme/Lymph: No Bruising, No Bleeding,No Lymphadenopathy Endocrine : No Polyuria, No Polydipsia All other systems reviewed and are negative Physical exam (Primary Care) Vital Signs: Last Vital Signs Pulse 98 07/05/23 09:55 BP 126/86 07/05/23 09:55 Pulse Ox 96 07/05/23 09:55 Oxygen Delivery Method Room Air 07/05/23 09:55 Care Plan Goal for BP management: Vital signs reviewed stable. BMI result Body Mass Index 30.4 Tobacco/Smoking Status: Tobacco use Status Tobacco use date assessed 07/05/23 07/05/23 10:04 Patient Tobacco Use Status Never used Tobacco 07/05/23 10:04 e-Cigarette/Vaping Use 07/05/23 10:04 Depression Screening Interpretation: Negative Const Other: Appearance: Alert.? Oriented X3.? No acute distress.? Head: Normocephalic, atraumatic. Neck: Normal inspection.? Neck supple.? CVS: Normal heart rate and rhythm.? Pulses normal.? Respiratory: No respiratory distress.? Breath sounds normal.? Skin: Skin warm and dry.? Normal skin color.? Normal skin turgor.? Extremities: No lower extremity edema.? No calf ttp. 5/5 strength to bilateral upper and lower extremities Back: No midline tenderness, no C-spine tenderness, full range of motion, no CVA tenderness bilaterally. Left sided Paraspinal muscle tenderness. Neuro: Oriented X 3.? No motor deficit. + straight leg test left leg with rediculopathy. CN 2-12 intact Assessment and Plan Assessment & Plan (1) ADHD: Comment: Patient has a history of ADHD, states he was medicated during childhood. Has no t been on ADH medication for several years, but states he is experiencing racing thoughts at times. Patient met with community navigator to assist with ADHD testing in to establish psychiatric provider for medication intervention if needed. Code(s): F90.9 - Attention-deficit hyperactivity disorder, unspecified type Qualifiers: Attention deficit-hyperactivity disorder type: unspecified Qualified Code(s): F90.9 - Attention-deficit hyperactivity disorder, unspecified type (2) Neck arthralgia: Comment: Patient has ER visits where he was treated for neck arthralgia. States that he continues to have problem of intermittent left-sided pain, the cervical paraspinal region. Patient states he does get occasional tingling and numbness down his left hand and into his thumb and 1st 2 fingers. Will give patient meloxicam, will give cyclobenzaprine, will obtain x-ray of the cervical spine. Will also refer for nerve conduction test. Code(s): M54.2 - Cervicalgia Plan: Will intervene based on x-ray results. (3) Lumbar back pain with radiculopathy affecting lower extremity: Comment: Patient has positive straight leg test with radiculopathy on physical exam. Will order x-ray of the lumbar spine. Code(s): M54.16 - Radiculopathy, lumbar region Plan: Will follow up in intervene based on x-ray results (4) Muscle cramps: Comment: Patient states he has intermittent muscle cramps. Will draw labs. Patient has been instructed to take 400 mg magnesium daily. Code(s): R25.2 - Cramp and spasm (5) Numbness and tingling in left hand: Comment: Will order nerve conduction test. Code(s): R20.0 - Anesthesia of skin; R20.2 - Paresthesia of skin (6) GERD (gastroesophageal reflux disease): Comment: Patient has been taking omeprazole with limited effect. Will prescribe pantoprazole sodium. Patient has also been taking ibuprofen due to neck pain, will switch to meloxicam. Neck patient has been instructed to take this medication with food in his stomach in plenty of water. Code(s): K21.9 - Gastro-esophageal reflux disease without esophagitis Qualifiers: Esophagitis presence: without esophagitis Qualified Code(s): K21.9 - Gastro-esophageal reflux disease without esophagitis Plan: Take your medications as prescribed. If you were prescribed antibiotics today, it is important that you take your medication to their entirety, do not skip any doses, do not finish them early. Follow-up with your primary care provider this week. Return to the emergency department with new or worsening symptoms. Such as fevers, chills, chest pain, shortness of breath, nausea, vomiting, dizziness, headache, vision changes, lethargy In case of emergency call 911 Plan Patient to follow-up with physical exam in 3 months. Orders: Orders XR lumbar spine 2-3V Today M54.16 - Radiculopathy, lumbar region Magnesium Today R25.2 - Cramp and spasm Vitamin D 25-OH (D2 and D3) Today Z13.21 - Encounter for screening for nutritional disorder UA CC w/rflx Micro + Cult Today Z13.89 - Encounter for screening for other disorder Complete Blood Count Auto Diff Today Z13.0 - Encounter for screening for diseases of the blood and blood-forming organs and certain disorders involving the immune mechanism Comprehensive Met. Panel Today Z91.89 - Other specified personal risk factors, not elsewhere classified XR cervical spine 2V Today M54.2 - Cervicalgia Vitamin B6 Today Z13.21 - Encounter for screening for nutritional disorder Vitamin B12 Today Z13.21 - Encounter for screening for nutritional disorder TSH reflex Free T4 Today Z13.29 - Encounter for screening for other suspected endocrine disorder Lipid Panel Today Z13.220 - Encounter for screening for lipoid disorders NE nerve conduction velocity Today R20.0 - Anesthesia of skin, R20.2 - Paresthesia of skin Medications: New cyclobenzaprine 10 mg PO BEDTIME PRN 14 tabs 0RF muscle spasm meloxicam Do not combine with other NSAIDS. Take with food in stomach. 15 mg PO DAILY 30 tabs 0RF pantoprazole 20 mg PO DAILY 30 tabs 0RF Coding Level of Care Code Est Pt Level 3 (38718) Diagnoses Attention deficit hyperactivity disorder (ADHD), unspecified ADHD type F90.9 Attention deficit-hyperactivity disorder type: unspecified Neck arthralgia M54.2 Lumbar back pain with radiculopathy affecting lower extremity M54.16 Muscle cramps R25.2 Numbness and tingling in left hand R20.0; R20.2 Gastroesophageal reflux disease without esophagitis K21.9 Esophagitis presence: without esophagitis Additional Codes YONNY-7 Assessment Billing - YONNY-7 Assessment Tool: YONNY-7 Assessment 21325 ([id number]) Time Spent (min) 45
== END 2023-07-05 11:33 | disposition home or self-care (01) ==
PROVIDERS: Visit Provider Nurse Practitioner Primary Care
DX: R25.2 Cramp and spasm (principal); F90.9 Attention-deficit hyperactivity disorder, unspecified type; M54.2 Cervicalgia; M54.16 Radiculopathy, lumbar region; R20.0 Anesthesia of skin; R20.2 Paresthesia of skin; K21.9 Gastro-esophageal reflux disease without esophagitis
CPT/HCPCS: 99204

== ENCOUNTER 2023-07-05 10:55 | Outpatient (REF) | payer OTHER, SELFPAY ==
--- NOTE | ~2023-07-05 | XR_ITS ---
EXAMINATION: XR CERVICAL SPINE XR LUMBAR SPINE CLINICAL INFORMATION: Neck pain, radiculopathy lumbar region. TECHNIQUE: 3 views of the cervical spine. 3 views of the lumbar spine. FINDINGS: CERVICAL SPINE: Alignment is preserved. Cervical spondylosis with advanced degenerative changes and loss of disc space height at C6-C7. Visualization of C6-C7 limited due to overlying soft tissues. LUMBAR SPINE: Slight rightward curvature of the lumbar spine. Small pelvic calcifications are likely vascular. Facet arthritis in the lower lumbar spine. Degenerative changes on limited views of the lower thoracic spine. Mild multilevel lumbar spondylosis with loss of disc space height at L5-S1. XR/XR lumbar spine 2-3V IMPRESSION: 1. Cervical spondylosis with advanced degenerative changes at C6-C7. 2. Mild multilevel lumbar spondylosis with loss of disc space height at L5-S1.
--- NOTE | ~2023-07-05 | XR_ITS ---
EXAMINATION: XR CERVICAL SPINE XR LUMBAR SPINE CLINICAL INFORMATION: Neck pain, radiculopathy lumbar region. TECHNIQUE: 3 views of the cervical spine. 3 views of the lumbar spine. FINDINGS: CERVICAL SPINE: Alignment is preserved. Cervical spondylosis with advanced degenerative changes and loss of disc space height at C6-C7. Visualization of C6-C7 limited due to overlying soft tissues. LUMBAR SPINE: Slight rightward curvature of the lumbar spine. Small pelvic calcifications are likely vascular. Facet arthritis in the lower lumbar spine. Degenerative changes on limited views of the lower thoracic spine. Mild multilevel lumbar spondylosis with loss of disc space height at L5-S1. XR/XR cervical spine 2V IMPRESSION: 1. Cervical spondylosis with advanced degenerative changes at C6-C7. 2. Mild multilevel lumbar spondylosis with loss of disc space height at L5-S1.
[2023-07-05 13:12] LABS: MANUAL DIFF FLAG NO
[2023-07-05 13:22] LABS: Basophils Absolute Auto 0.1 X10*3/uL (0.0-0.2); Basophils Percent Auto 0.8 % (0-2); Eosinophils Absolute Auto 0.2 X10*3/uL (0.0-0.4); Eosinophils Percent Auto 1.7 % (0-4); Hematocrit 45.7 % (42.0-52.0); Hemoglobin 16.4 g/dl (14.0-18.0); Imm Gran Abs Auto 0.09 X10*3/uL (0.00-0.03); Lymphocytes Absolute Auto 1.8 X10*3/uL (1.2-4.9); Lymphocytes Percent Auto 19.1 % (20-40); Mean Corpuscular HGB Conc 35.9 g/dl (31.0-36.0); Mean Corpuscular Hemoglobin 32.3 pg (27.0-33.0); Mean Corpuscular Volume 90.1 fL (80.0-98.0); Mean Platelet Volume 10.9 fL (9.4-12.4); Monocytes Absolute Auto 0.7 X10*3/uL (0.1-1.2); Monocytes Percent Auto 7.7 % (2-11); Neutrophils Absolute Auto 6.6 x10*3/uL (2.0-8.3); Neutrophils Percent Auto 69.7 % (45-73); Platelet Count 297 X10*3/uL (160-400); Red Blood Count 5.07 X10*6/uL (4.60-5.80); Red Cell Distribution Width 12.3 % (11.0-16.0); White Blood Count 9.5 X10*3/uL (4.8-10.8)
[2023-07-05 13:53] LABS: Appearance Urine Turbid; Color Urine Dark Yellow; Glucose Urine UA Negative (Negative); Leukocyte Esterase Urine Negative (Negative); Nitrite Urine Negative (Negative); PH 6.5 (5.0-9.0); Specific Gravity - Urine >= 1.030 (1.005-1.025); UMIC TRIGGER UACC YES; Urine Blood Negative (Negative); Urine Ketones 15 mg/dL (Negative); Urine Protein 30 (1+) mg/dL (Neg-Trace)
[2023-07-05 14:22] LABS: Alanine Aminotransferase 43 U/L (0-40); Albumin Level 4.7 g/dL (3.5-5.0); Alkaline Phosphatase 72 U/L (39-117); Anion Gap 14 (12-20); Aspartate Amino Transferase 28 U/L (5-37); Bilirubin Total 0.5 mg/dL (0.0-1.0); Blood Urea Nitrogen 8 mg/dL (9-16); Calcium 9.9 mg/dL (8.4-10.2); Carbon Dioxide 23 mmol/L (22-29); Chloride 107 mmol/L (96-108); Estimated Glomerular Filt Rate > 60; Glucose Random 90 mg/dL (60-115); Magnesium 2.3 mg/dL (1.6-2.6); Potassium 4.2 mmol/L (3.3-5.1); Sodium 140 mmol/L (135-145)
[2023-07-05 14:29] LABS: Vitamin B12 336 pg/mL (200-900)
[2023-07-05 14:32] LABS: Bacteria Urine Trace (None Seen); Calcium Oxalate Crystals Urine Present; Hyaline Casts Urine 0-2 /LPF (0-2); RBC Urine 0-2 /HPF (0-2); Squamous Epithelial Cell Urine 0-2 /HPF (0-2); WBC Urine 0-5 /HPF (0-5)
[2023-07-05 14:41] LABS: TSH reflex Free T4 1.02 uIU/mL (0.32-4.0)
[2023-07-10 14:13] LABS: Vitamin B6 76.5 ng/mL (2.1-21.7)
[2023-07-11 13:03] LABS: Vitamin D 25-OH, D2 5 ng/mL; Vitamin D 25-OH, D3 4 ng/mL; Vitamin D 25-OH, Total 9 ng/mL (30-100)
== END 2023-07-05 10:56 | disposition home or self-care (01) ==
LOC: HO.HMGCX 10:55
PROVIDERS: PCP Nurse Practitioner Primary Care; Visit Provider Nurse Practitioner Primary Care
DX: M54.2 Cervicalgia (principal); M54.16 Radiculopathy, lumbar region; R25.2 Cramp and spasm; Z91.89 Other specified personal risk factors, not elsewhere classified; Z13.29 Encounter for screening for other suspected endocrine disorder; Z13.21 Encounter for screening for nutritional disorder; Z13.0 Encounter for screening for diseases of the blood and blood-forming organs and certain disorders involving the immune mechanism
CPT/HCPCS: 36415; 72040; 72100; 80053; 81001; 82306; 82607; 83735; 84207; 84443; 85025

== ENCOUNTER 2023-07-18 09:31 | Outpatient (REF) | payer OTHER, SELFPAY ==
--- NOTE | 2023-07-18 | EMG_ITS ---
Left median and ulnar motor and sensory studies were performed. Left radial study was performed and paraspinal muscles were tested with a needle. Median and lateral antecubital brachial sensory studies were also performed. IMPRESSION: This study did not reveal any significant finding to suggest entrapment neuropathy of median or ulnar nerve or a radiculopathy. MD DEBI Lay/MICHELLE / [id number]
== END 2023-07-18 09:32 | disposition home or self-care (01) ==
LOC: HO.NEURO 09:31
PROVIDERS: PCP Nurse Practitioner Primary Care; Visit Provider Nurse Practitioner Primary Care
DX: R20.0 Anesthesia of skin (principal); R20.2 Paresthesia of skin
CPT/HCPCS: 95886; 95910

== ENCOUNTER 2023-10-03 09:05 | Outpatient (AMB) | payer OTHER, SELFPAY ==
--- NOTE | 2023-10-03 09:20 | MHC.PC.OV ---
Vital Signs 10/03/23 09:21 Height 5 ft 10 in Weight 217 lb 2 oz BMI 31.2 BP 122/80 Blood Pressure Location Rt brachial Position Sitting Pulse 94 Pulse Source Pulse Oximeter Pulse Oximetry (%) 97 Oxygen Delivery Method Room Air Intake Visit Reasons: Sciatica pain very intense and constant Intake Note: pt is here for sciatica pain, patient states its very intense and a constant pain Allergies melani Allergy (Verified 10/03/23 09:44) irritaes throat nickel Allergy (Verified 10/03/23 09:44) Unknown Medication List - Last Reconciled 10/03/23 by DARRIUS Lynn acetaminophen (Tylenol Extra Strength) 500 mg PO Q6H PRN pantoprazole 20 mg PO DAILY Tobacco use date assessed: 07/05/23 Dental Screening Dental Screen Date: 07/05/23 HPI HPI Comments History of Present Illness Details Patient is a 33-year-old male in today for follow-up regarding cervical and lumbar pain. Patient had x-rays which revealed cervical spondylosis with advanced disc disease and C6 and C7 as well as lumbar spondylosis with loss of disc space at L5-S1. Patient has MRI ordered which she has not been able to schedule. Will follow-up on that. Patient reports that he has pain radiating down his left leg. He has been utilizing Tylenol with mild to moderate effect. Denies any tingling or numbness, denies saddle numbness. Will refer patient to physical therapy. Will refer patient to Neuro Spine. Will give patient meloxicam and prednisone to be taken as directed. Will also redraw CMP, and lipid panel. PFSH Surgical History No pertinent past surgical history Family History Father Melanoma Mother ADHD Social History Housing: Apartment Patient Tobacco Use Status: Never used Tobacco Current occupational status: employed Cognitive needs: No Hearing needs: No Vision needs: Yes Questionnaire Thrive Questionnaire Date Thrive assessed: 10/03/23 I am a: Patient What is your living situation today?: I have a steady place to live Within the past 12 months, did the food you bought not last and you didn't have the money to get more?: Never true Within the past 12 months, did you worry whether your food would run out before you got money to buy more?: Never true Do you have trouble paying for medicines?: No Do you have trouble getting transportation to medical appointments?: No Do you have trouble paying your heating and electricity bill?: No Do you have trouble taking care of your child, family member or friend?: No Do you have trouble with day-to-day activities such as bathing, preparing meals, shopping, managing finances, etc.?: No Are you currently unemployed and looking for a job?: No Are you interested in more education?: No Please select the resources that you would like help with: None Currently or been in a relationship where the following occur: no concerns reported THRIVE Score: 0 Review of Systems Const All systems reviewed & are unremarkable except as noted in HPI and below Physical exam (Primary Care) Vital Signs: Last Vital Signs Pulse 94 10/03/23 09:21 BP 122/80 10/03/23 09:21 Pulse Ox 97 10/03/23 09:21 Oxygen Delivery Method Room Air 10/03/23 09:21 Care Plan Goal for BP management: BP is controlled. BMI result Body Mass Index 31.2 Tobacco/Smoking Status: Tobacco use Status Tobacco use date assessed 07/05/23 10/03/23 09:22 Patient Tobacco Use Status Never used Tobacco 10/03/23 09:22 Thrive Assessment: Date of Thrive Assessment Date Thrive assessed 10/03/23 10/03/23 09:22 Currently or been in a relationship where the following occur: no concerns reported Const General: cooperative and no acute distress Orientation/consciousness: patient oriented x3 Limitations: no limitations HENMT Head: Yes normal to inspection Eyes Sclerae: sclerae normal Neck Neck: Yes normal visual inspection and Yes full ROM Resp Effort & Inspection: normal respiratory effort General: Yes no CVA tenderness Back/Spine/Pelvis Back: no CVA tenderness Cervical Spine: cervical muscular tenderness and other (Radiculopathy down the left arm) Thoracic/Lumbar Spine: straight leg raise positive (left side) Neuro General: patient oriented x3 and gait normal Extrem General: Yes normal to inspection Right lower extremity: no edema Left lower extremity: no edema Psych Thought content: Normal thought content present Insight: Good insight present (Psych) Judgement: Good judgement present (Psych) Assessment and Plan Assessment & Plan (1) Lumbar back pain with radiculopathy affecting lower extremity: Comment: Patient has positive straight leg test with radiculopathy on physical exam. Will order physical therapy. Will refer to neuro spine. Code(s): M54.16 - Radiculopathy, lumbar region (2) Neck arthralgia: Comment: Patient has ER visits where he was treated for neck arthralgia. States that he continues to have problem of intermittent left-sided pain, the cervical paraspinal region. Patient states he does get occasional tingling and numbness down his left hand and into his thumb and 1st 2 fingers. Will refer to neuro spine. Patient has cervical x-ray on file. Code(s): M54.2 - Cervicalgia Plan: Will give patient meloxicam and prednisone. Plan Follow-up for physical exam in 3 months Orders: Orders PT Evaluation and Treatment Today M54.16 - Radiculopathy, lumbar region Comprehensive Met. Panel Today Z91.89 - Other specified personal risk factors, not elsewhere classified Referrals Neuro Spine Referral M54.16 - Radiculopathy, lumbar region, M54.2 - Cervicalgia, R20.0 - Anesthesia of skin, R20.2 - Paresthesia of skin Medications: New meloxicam 15 mg PO DAILY 20 tabs 0RF prednisone 40 mg (2 x 20 mg) PO DAILY 10 tabs 0RF Refilled pantoprazole 20 mg PO DAILY 30 tabs 0RF Coding Level of Care Code Est Pt Level 3 (20166) Diagnoses Lumbar back pain with radiculopathy affecting lower extremity M54.16 Neck arthralgia M54.2 Time Spent (min) 26
[2023-10-03 09:21] VITALS: BP 122/80; PULSE 94; O2SAT 97; BMI 31.2
== END 2023-10-03 14:51 | disposition home or self-care (01) ==
PROVIDERS: PCP Nurse Practitioner Primary Care; Visit Provider Nurse Practitioner Primary Care
DX: M54.16 Radiculopathy, lumbar region (principal); M54.2 Cervicalgia
CPT/HCPCS: 99213

== ENCOUNTER 2023-10-03 09:55 | Outpatient (REF) | payer OTHER, SELFPAY ==
[2023-10-03 14:15] LABS: Alanine Aminotransferase 48 U/L (0-40); Albumin Level 4.9 g/dL (3.5-5.0); Alkaline Phosphatase 63 U/L (39-117); Anion Gap 15 (12-20); Aspartate Amino Transferase 32 U/L (5-37); Bilirubin Total 0.5 mg/dL (0.0-1.0); Blood Urea Nitrogen 9 mg/dL (9-16); Calcium 9.9 mg/dL (8.4-10.2); Carbon Dioxide 24 mmol/L (22-29); Chloride 106 mmol/L (96-108); Cholesterol 220 mg/dL (<200); Estimated Glomerular Filt Rate > 60; Glucose Random 95 mg/dL (60-115); HDL Cholesterol 53 mg/dL (>40); LDL Cholesterol Calculated 121 mg/dL (<100); Potassium 4.9 mmol/L (3.3-5.1); Sodium 140 mmol/L (135-145); Triglycerides 231 mg/dL (<150)
== END 2023-10-03 09:56 | disposition home or self-care (01) ==
LOC: HO.HMGCLDS 09:55
PROVIDERS: PCP Nurse Practitioner Primary Care; Visit Provider Nurse Practitioner Primary Care
DX: Z13.220 Encounter for screening for lipoid disorders (principal); Z91.89 Other specified personal risk factors, not elsewhere classified
CPT/HCPCS: 36415; 80053; 80061

== ENCOUNTER 2023-11-27 09:55 | Outpatient (RCR) | payer OTHER, SELFPAY ==
--- NOTE | 2023-11-27 12:04 | MHC.PT.EP ---
[facility] [place] Office [place] Office [place] Office [address] Clarita Hammnod [address] [phone] F: [phone] F: [phone] F: [phone] F: [phone] Physical Therapy Plan of Care Date of Evaluation: 11/27/23 Date of Surgery: Diagnosis: This is a 33 yo male presenting to skilled PT with a script for lumbar back pain with radiculopathy. Assessment: This is a 33 yo male presenting to skilled PT with a script for lumbar back pain with radiculopathy. Patient reporting about a year ago he started to have pain in the middle of the night insidiously. Pain was located at the neck and into the L arm, it ran into the lateral 2 fingers. Soon after this he started to have low back stress/aches and pains as well that also started to run down the L leg to the lateral gastroc. Pain increases with transfers sitting to standing, walking (compensates) and is worse in the AM. Pain is located at the L side low back, travels into the groin/hip, lateral knee and lateral gastroc (occasionally into the great toe, this is described as pulling, sometimes numbness and tingling). He is having a hard time describing what makes it better or worse. Assessment reveals pain that ranges from up to a 6/10 at the worst. Patient demos decreased lumbar and hip ROM, strength of core, L LE, TTP at L side lumbar and sacral tissues and bony landmarks and impaired posture with forward head and rounded shoulders. ? posterior derangement L5/S1 and patient will work on extension based exercises, postural training with lumbar support and functional adjustments at home for body mechanics. Based on functional limitations, impaired QOL and pain tolerance patient is a good candidate for skilled PT 2x/wk for 4wks. (due to high co-pay patient will follow up in 2 weeks). Frequency and Duration: The patient will be seen 2x/wk for 4wks Short Term Goals: Pt will demonstrate improved postural awareness and understanding of core engagement with supine and standing tasks without cues throughout session to improve overall back safety in 2 weeks. Pt will demonstrate centralization of sx in 2 weeks. Pt will continue to reinforce precautions, sitting, standing and ADL modifications with proper body mechanics in 2 wks. Senior Care Goals: Pt will demonstrate improved outcome measure by 5 points in 4 weeks for improved functional mobility. Pt will demonstrate ability to bend and lift WNL min to no pain for household tasks in 4 wks. Pt will be I in HEP and compliant in 4wks Treatment Plan: Modalities to reduce pain, spasms and effusion. Manual therapy to restore motion and function. Therapeutic exercise to improve strength and flexibility. Neuromuscular re-education for posture and balance. Therapeutic activities to return to functional activities of daily living. Electronically signed by: Keysha Bustos PT Please sign and return to therapist. Thank you for your referral.
--- NOTE | 2024-01-13 08:10 | MHC.PT.DC ---
[facility] [place] [facility] [place] Office [place] Office [address] Clarita Hammond [address] [phone] F: [phone] F: [phone] F: [phone] F: [phone] Physical Therapy Discharge Report Diagnosis: This is a 33 yo male presenting to skilled PT with a script for lumbar back pain with radiculopathy. Date of Surgery: Date of Evaluation: 11/27/23 Date of Discharge: Treatments to Date: 1 Cancellations to Date: 0 No Shows to Date: 0 Discharge Status: Patient Elected to Stop Visit Non-compliance Discharge Summary: This is a 33 yo male presenting to skilled PT with a script for lumbar back pain with radiculopathy. Patient reporting about a year ago he started to have pain in the middle of the night insidiously. Pain was located at the neck and into the L arm, it ran into the lateral 2 fingers. Soon after this he started to have low back stress/aches and pains as well that also started to run down the L leg to the lateral gastroc. Pain increases with transfers sitting to standing, walking (compensates) and is worse in the AM. Pain is located at the L side low back, travels into the groin/hip, lateral knee and lateral gastroc (occasionally into the great toe, this is described as pulling, sometimes numbness and tingling). He is having a hard time describing what makes it better or worse. Assessment reveals pain that ranges from up to a 6/10 at the worst. Patient demos decreased lumbar and hip ROM, strength of core, L LE, TTP at L side lumbar and sacral tissues and bony landmarks and impaired posture with forward head and rounded shoulders. ? posterior derangement L5/S1 and patient will work on extension based exercises, postural training with lumbar support and functional adjustments at home for body mechanics. Based on functional limitations, impaired QOL and pain tolerance patient is a good candidate for skilled PT 2x/wk for 4wks. (due to high co-pay patient will follow up in 2 weeks). Patient cancelled follow up visit and did not return to PT. Chart was closed after 30 days. Electronically signed by: Keysha Bustos, PT Please sign and return to therapist. Thank you for your referral.
== END 2024-01-13 08:11 | disposition home or self-care (01) ==
LOC: HO.PTCHIC 09:55
PROVIDERS: PCP Nurse Practitioner Primary Care; Visit Provider Nurse Practitioner Primary Care
DX: M54.16 Radiculopathy, lumbar region (principal)
CPT/HCPCS: 97110; 97161; 97535